=== PATIENT | male | born 1980 | race Caucasian/White ===

== ENCOUNTER 2016-11-27 21:51 | Emergency (ER) | payer OTHER ==
--- NOTE | ~2016-11-27 | EKG ---
PATIENT: NEIL CROWELL UNIT #: [id number] Ventricular Rate: 68 BPM Atrial Rate: 68 BPM P-R Interval: 152 ms QRS Duration: 94 ms Q-T Interval: 372 ms QTC Calculation(Bezet): 395 ms P [place]: 18 degrees Calculated R [place]: 65 degrees Calculated T [place]: 38 degrees Diagnosis Line: Normal sinus rhythm with sinus arrhythmia Diagnosis Line: Normal ECG Diagnosis Line: When compared with ECG of 12-NOV-2015 22:29, Diagnosis Line: Vent. rate has decreased BY 38 BPM Diagnosis Line: Confirmed by ALE MESA MD ([id number]) on Diagnosis Line: 12/27/2016 7:06:40 AM INTERPRETING MD: LORETTA
--- NOTE | ~2016-11-27 | CT71 ---
[facility] A Service of [facility] RADIOLOGY TEXT RESULTS PATIENT: NEIL CROWELL LOCATION: SED : 82 UNIT #: [id number] AGE: [address]: LAVON THOMPSON PA-C SEX: M ORDER DR: [id number] [address] [address] [id number] E MR#: [id number] Acc #: [id number] NAME: NEIL CROWELL. : 1980 SEX: M STUDY DATE/TIME: 11/27/2016 22:28 UNIT: SED ROOM: STUDY DESCRIPTION: CT Head Wo Contrast Attending Physician: Lavon Thompson Pa-C Ordering Physician: Yfn Not Listed Primary Care Physician: Aaron Coleman M.D. MEDICAL IMAGING REPORT This report is preliminary unless electronic signature is present. EXAM CT head without. HISTORY Lightheadedness started at work a few hours ago. No improvement with eating, and the back of his head is starting to hurt. History of hypertension. COMMENT Routine noncontrasted head CT is reviewed. No comparison. The mastoid air cells are clear. The paranasal sinuses are clear. There is no displaced calvarial fracture. There is no evidence for acute intracranial hemorrhage or extraaxial fluid collection. The ventricles are normal in size and configuration, and the polanco-white junction is well-maintained. The basilar cisterns are patent. There is no intracranial mass effect. No acute cortical infarct is suspected, but if this is the clinical concern, follow-up imaging is recommended, preferably with an MRI. IMPRESSION Negative noncontrasted head CT. Dictated by... Christiane Layne M.D. THIS IS AN ELECTRONICALLY VERIFIED REPORT Christiane Layne M.D. at 11/28/2016 2:45 PM NORM/ankit [facility] A Service [facility] RADIOLOGY TEXT RESULTS PATIENT: NEIL CROWELL LOCATION: SED : 82 UNIT #: [id number] AGE: [address]: LAVON THOMPSON PA-C SEX: M ORDER DR: TD: 11/28/2016 12:41 JOB #: [id number] MEDICAL IMAGING REPORT Page 1 of 1
[~2016-11-27 21:51] MED LIST: ALBUTEROL17 GM INH; BP MEDICINE; FLEXERIL PO; FLEXERIL10 MG PO; KEFLEX500 MG PO; LORTAB 5/500 TA1 TA2 PO; MOTRIN600 M2 PO; NO MEDICATIONS; NORCO 7.5-3251 EACH PO; OMNICEF300 MG PO; PEN-VEE K PO; PHENERGAN PR; PHENERGAN25 MG PO; PROMETHAZINE D118 ML PO; PROTONIX; PROTONIX PO; TAMIFLU75 M1 PO; VICODIN 5/500 T1 TAB PO; VOLTAREN50 MG PO; VOLTAREN75 MG PO; ZOFRAN PO; [UNRECOGNIZED DRUG - OTHER]
[2016-11-27 22:14] LABS: BASOPHIL# 0.2 X10e3 (0-0.3); BASOPHIL% 1.3 % (0-2.5); EOSINOPHIL# 0.4 X10e3 (0-0.7); EOSINOPHIL% 2.9 % (0.0-7.0); HEMATOCRIT 48.1 % (38.0-50.0); HEMOGLOBIN 16.4 gm/dL (13.0-16.0); LYMPHOCYTE# 4.4 X10e3 (1.0-3.5); LYMPHOCYTE% 33.8 % (17.0-45.0); MEAN CELL VOLUME 92.7 FL (83-96); MEAN CORPUSCULAR HEMOGLOBIN 31.6 PG (28-34); MEAN CORPUSCULAR HGB CONC 34.1 g/dL (30-36); MONOCYTE# 1.6 X10e3 (0-1.0); MONOCYTE% 12.1 % (3.0-12.0); NEUTROPHIL# 6.5 X10e3 (1.5-7.1); NEUTROPHIL% 49.9 % (40-75); PLATELET COUNT 316 X10e3 (140-420); RED BLOOD COUNT 5.19 X10e (3.90-5.60); RED CELL DISTRIBUTION WIDTH 13.3 % (11.0-15.5); WHITE BLOOD COUNT 13.1 X10e3 (4.0-10.5)
[2016-11-27 22:15] LABS: DIFF IND NO
[2016-11-27 22:24] LABS: URINE SOURCE CLEAN CATCH
[2016-11-27 22:26] LABS: URINE APPEARANCE CLEAR; URINE BILIRUBIN NEG (NEG); URINE BLOOD NEG (NEG); URINE COLOR YELLOW; URINE GLUCOSE NEG (NORM); URINE KETONE NEG (NEG); URINE LEUKOCYTE ESTERASE NEG (NEG); URINE NITRATE NEG (NEG); URINE PH 6.5 (5-8); URINE PROTEIN NEG (NEG); URINE UROBILINOGEN 0.2 MG/DL (NORM)
[2016-11-27 22:27] LABS: MICRO INDICATED? NO
[2016-11-27 22:29] LABS: ALBUMIN SERUM 4.1 g/dL (3.5-5.0); ALKALINE PHOSPHATASE 97 U/L (32-92); ALT (SGPT) 31 U/L (10-40); AST (SGOT) 19 U/L (10-42); BILIRUBIN,TOTAL 0.8 mg/dL (0.2-2.0); BLOOD UREA NITROGEN 11 mg/dL (9-23); BUN/CREATININE RATIO 12.22; CALCIUM SERUM 9.3 mg/dL (8.4-10.2); CARBON DIOXIDE 27 mmol/L (22-31); CHLORIDE 105 mmol/L (100-111); CREATININE SERUM 0.9 mg/dL (0.6-1.4); GLOM FILT RATE Estimated ABOVE60 mL/min (>60); GLUCOSE FASTING 95 mg/dL (70-110); POTASSIUM 3.6 mmol/L (3.5-5.1); PROTEIN TOTAL SERUM 7.3 g/dL (6.0-8.3); SODIUM 139 mmol/L (135-145)
[2016-11-27 22:35] LABS: BILIRUBIN, DIRECT <0.1 mg/dL (0.0-0.2); BILIRUBIN,INDIRECT 0.7 mg/dL (0.0-0.9)
[2016-11-27 22:36] LABS: POC - MYOGLOBIN 73.8 ng/mL (0.0-169.0); POC - TROPONIN <0.05 ng/mL (<=0.05)
[2016-11-27 22:36] LABS: AMPHETAMINE NEG (NEG); BARBITURATES NEG (NEG); BENZODIAZEPINES NEG (NEG); COCAINE NEG (NEG); MARIJUANA NEG (NEG); OPIATES NEG (NEG); TRICYCLIC ANTIDEPRESSANTS NEG (NEG); U METHADONE NEG (NEG)
== END 2016-11-28 00:08 | disposition home or self-care (01) ==
LOC: SED 21:51
PROVIDERS: Physician Assistant
DX: R42 Dizziness and giddiness (principal); R51 Headache; R06.2 Wheezing; I10 Essential (primary) hypertension; K21.9 Gastro-esophageal reflux disease without esophagitis; F17.210 Nicotine dependence, cigarettes, uncomplicated; Z79.899 Other long term (current) drug therapy
CPT/HCPCS: 36415; 70450; 80048; 80076; 80307; 81003; 82553; 82947; 83874; 84484; 85025; 93005; 96361; 96374; 99284; J2405

== ENCOUNTER 2016-12-28 10:19 | Emergency (ER) | payer OTHER | END 2016-12-28 12:01 | disposition home or self-care (01) | LOC: CED 10:19 | DX: S16.1XXA Strain of muscle, fascia and tendon at neck level, initial encounter (principal); X58.XXXA Exposure to other specified factors, initial encounter; Y92.89 Other specified places as the place of occurrence of the external cause | CPT/HCPCS: 99282 ==

== ENCOUNTER 2017-04-01 02:48 | Emergency (ER) | payer OTHER ==
[~2017-04-01] VITALS: Ht 172.7 cm; Wt 104.3 kg
[2017-04-01] MEDS ORDERED: PANTOPRAZOLE SO40 MG PO (02:56)
[2017-04-01] MEDS ORDERED: ALDACTAZIDE PO (02:56)
== END 2017-04-01 03:35 | disposition home or self-care (01) ==
LOC: SED 02:48
DX: H93.11 Tinnitus, right ear (principal); F17.210 Nicotine dependence, cigarettes, uncomplicated; Z79.899 Other long term (current) drug therapy
CPT/HCPCS: 99282

== ENCOUNTER 2017-05-20 | Emergency (ER) | payer OTHER ==
[~2017-05-20] VITALS: Ht 172.7 cm; Wt 104.3 kg
[~2017-05-20] MED LIST changes: +ALDACTAZIDE PO; +PANTOPRAZOLE SO40 MG PO
[2017-05-20] MEDS ORDERED: PAXIL (01:25)
[2017-05-20] MEDS ORDERED: HCTZ (01:25)
[2017-05-20] MEDS ORDERED: PROTONIX (01:25)
[2017-05-20] MEDS ORDERED: SEROQUEL (01:25)
== END 2017-05-20 02:30 | disposition left against medical advice (07) ==
LOC: CED
DX: Z53.21 Procedure and treatment not carried out due to patient leaving prior to being seen by health care provider (principal)

== ENCOUNTER 2017-05-20 01:15 | Emergency (ER) | payer OTHER ==
[~2017-05-20] VITALS: Ht 172.7 cm; Wt 106.6 kg
--- NOTE | ~2017-05-20 | CR141 ---
[facility] A Service of [facility] & [facility] RADIOLOGY TEXT RESULTS PATIENT: NEIL CROWELL LOCATION: SED : 82 UNIT #: [id number] AGE: [address]: Yves Pardo MD SEX: M ORDER DR: [id number] [place] [id number] E MR#: [id number] Acc #: [id number] NAME: NEIL CROWELL. : 1980 SEX: M STUDY DATE/TIME: 05/20/2017 01:41 UNIT: SED ROOM: STUDY DESCRIPTION: CR Hand Min 3 Views Lt Attending Physician: Yves Pardo M.D. Ordering Physician: Yves Pardo M.D. Primary Care Physician: Aaron Coleman M.D. MEDICAL IMAGING REPORT This report is preliminary unless electronic signature is present. EXAM Left hand, 05/20/2017 at 01:41 INDICATION Thumb pain and swelling for 2-3 weeks after trauma. FINDINGS AP, lateral, and oblique projections of the hand show good mineralization with normal carpal, metacarpal, and phalangeal anatomy without indication of fracture, dislocation, or soft tissue radiopaque foreign body. IMPRESSION Normal hand. Dictated by... Scott Green Jr., M.D. THIS IS AN ELECTRONICALLY VERIFIED REPORT Scott Green Jr., M.D. at 05/20/2017 9:17 PM RACHEL/nick TD: 05/20/2017 14:50 JOB #: [id number] MEDICAL IMAGING REPORT Page 1 of 1
[2017-05-20] MEDS ORDERED: HCTZ (01:25)
[2017-05-20] MEDS ORDERED: SEROQUEL (01:25)
[2017-05-20] MEDS ORDERED: PROTONIX (01:25)
[2017-05-20] MEDS ORDERED: PAXIL (01:25)
== END 2017-05-20 02:44 | disposition home or self-care (01) ==
LOC: SED 01:15
DX: S63.602A Unspecified sprain of left thumb, initial encounter (principal); F17.200 Nicotine dependence, unspecified, uncomplicated; K21.9 Gastro-esophageal reflux disease without esophagitis; I10 Essential (primary) hypertension; W26.8XXA Contact with other sharp object(s), not elsewhere classified, initial encounter
CPT/HCPCS: 29125; 73130; 99283